=== PATIENT | male | born 2005 | race Caucasian/White ===

== ENCOUNTER 2024-07-23 12:21 | Emergency (ER) | payer BC, SELFPAY ==
--- NOTE | ~2024-07-23 | CT_ITS ---
EXAMINATION: CT brain wo con DATE: 07/23/2024 13:17 INDICATION: Syncope TECHNIQUE: Computed tomography (CT) of the head was performed without intravenous contrast. Sagittal and coronal reconstructions were performed. The mA was adjusted according to patient size. Iterative reconstruction technique was employed. The dose-length product was 605.33 mGy-cm. COMPARISON: None FINDINGS: No acute intracranial hemorrhage or acute infarction. 3.3 x 2.8 x 1.7 cm lenticular extra-axial fluid collection exerting mass effect upon the underlying right parietal lobe and with chronic remodeling of the inner table of the overlying calvarium consistent with a chronic arachnoid cyst. No other abno rmal fluid collections. Ventricles are normal and symmetric. No intracranial masses. The orbits, para nasal sinuses and mastoid air cells are normal. IMPRESSION: 1. Likely incidental chronic arachnoid cyst overlying the right parietal lobe. Otherwise normal head CT with no acute intrarenal process. Reviewed, dictated and finalized at location B.
--- NOTE | 2024-07-23 12:29 | ECG_ITS ---
Test Date: 2024-07-23 12:34:49 Measurements Intervals [place] Rate: 69 P: 68 CA: 167 QRS: 96 QRSD: 98 T: 43 QT: 392 QTc: 421 Interpretive Statements SINUS RHYTHM BORDERLINE RIGHT AXIS DEVIATION [QRS AXIS > 90] INCOMPLETE RIGHT BUNDLE BRANCH BLOCK [90+ ms QRS DURATION, TERMINAL R IN V1/V2, 40+ ms S IN I/aVL/V4/V5/V6] No previous ECG available for comparison Electronically Signed On 07-23-2024 13:04:39 CDT by Jennifer Hanson M.D.
[2024-07-23 12:31] VITALS: BP 121/70; PULSE 68; RESP 16; TEMP 36.6; O2SAT 100
[2024-07-23] MEDS: ONDANSETRON HCL ODT 4 MG TABLET PO (13:01)
--- NOTE | 2024-07-23 13:42 | ED_ITS ---
HPI - Syncope General Chief Complaint: Syncope Stated Complaint: Syncopal episode-hit back of head Time Seen by Provider: 07/23/24 12:53 Source: patient Mode of arrival: wheelchair Limitations: no limitations History of Present Illness HPI narrative: 19-year-old otherwise healthy was brought in from OB department with complaints of having a syncopal episode. Patient was watching circumcision, felt lightheaded and passed out and hit his head no complains of nausea. Denied having any chest pain or shortness of breath. Moves patient states that he did eat his breakfast this morning. Had a similar episode several months ago Related Data Allergies Allergy/AdvReac Type Severity Reaction Status Date / Time No Known Allergies Allergy Verified 07/23/24 12:22 Review of Systems Review of Systems: All systems reviewed & are unremarkable except as noted in HPI and below Constitutional: Constitutional: Reports no additional constitutional complaints Eyes: Eyes: Reports no additional eye complaints ENT: Reports system reviewed and no additional complaints, except as documented Cardiovascular: Cardiovascular: Reports no additional cardiovascular complaints Respiratory: Respiratory: Reports no additional respiratory complaints Gastrointestinal: Gastrointestinal: Reports as per HPI Musculoskeletal: Musculoskeletal: Reports no additional musculoskeletal complaints Integumentary/Breasts: Skin/Breast: Reports system reviewed and no additional complaints, except as docu Neurologic: Reports system reviewed and no additional complaints, except as documented Exam Narrative: GENERAL: Well-appearing, well-nourished, and in no acute distress. HEAD: Normocephalic, atraumatic. EYES: PERRLA and EOMI. NECK: Supple. CHEST: Clear to auscultation. No respiratory distress. HEART: Regular rate and rhythm. No murmur heard. Normal peripheral pulses. ABDOMEN: Soft, nontender, nondistended, normal active bowel sounds. EXTREMITIES: Normal range of motion. No edema. SKIN: Warm, dry, no rash. NEURO: No focal deficits. Alert and oriented x3. PSYCH: Normal mood and affect. Course Course Emergency Course: Patient feeling much better his nausea improved with the Zofran. Did inform him about his EKG and CT findings. Advised him to drink more fluids also advised to consider to sitting down when he feels lightheaded. Vital Signs Vital signs: Vital Signs Temperature 36.6 C 07/23/24 12:31 Pulse Rate 68 07/23/24 12:31 Respiratory Rate 16 07/23/24 12:31 Blood Pressure 121/70 07/23/24 12:31 Pulse Oximetry 100 07/23/24 12:31 Oxygen Delivery Room Air 07/23/24 12:31 Temperature 36.6 C 07/23/24 12:31 Pulse Rate 68 07/23/24 12:31 Respiratory Rate 16 07/23/24 12:31 Blood Pressure 121/70 07/23/24 12:31 Pulse Oximetry 100 07/23/24 12:31 Oxygen Delivery Room Air 07/23/24 12:31 MDM - Syncope Differential Diagnosis Differential diagnosis: Likely vasovagal syncope Imaging Data Radiologist's impression: ITS Impressions Head CT 07/23/24 13:23 IMPRESSION: 1. Likely incidental chronic arachnoid cyst overlying the right parietal lobe. Otherwise normal head CT with no acute intrarenal process. ECG Data EKG #1: EKG Interpretation: normal rate (69), sinus rhythm, no ectopy, no ST changes, right axis and no acute changes Discharge Plan Discharge Clinical Impression: Vasovagal syncope Patient Disposition: Home, Self-Care Condition: Stable Instructions: Syncope (ED) Patient Language: [place] Islander Follow-up/Referrals: Mayank Dan MD [Physician] - UNKNOWN,DOCTOR [Primary Care Provider] - Time of Disposition: 13:45
[2024-07-23 13:58] VITALS: BP 132/84; PULSE 78; RESP 16; O2SAT 98
--- OUTSIDE RECORDS SUMMARY | 2024-07-23 14:42 | XMS_ITS | Clinical Summary ---
Author Organization [facility] Address [address] [place] [address] Phone Care Team Providers Care Executive Business Coach Name Role Phone Dilcia Velazquez MD Primary Care Provider Allergies No known active allergies Medications acetaminophen (TYLENOL) 500 MG TabletIndications:Sp rain of interphalangeal joint of right thumb, initial encounter Take 1 Tab by mouth every 6 hours as needed for Pain or Fever. 7 Active Ibuprofen 200 MG CapsuleIndications:S prain of interphalangeal joint of right thumb, initial encounter Take 2 Caps by mouth every 6 hours as needed for Fever or Pain (Take with food and plenty of fluids; do not take if dehydrated. ). 7 Active Active Problems No known active problems Immunizations Immunization Administration Dates Next Due DTAP VACCINE 05/08/2005, 4,2003,06/10 HIB Vaccine (PRP-T) 05/08/2005,2003,2003 Hepatitis A Vaccine, Pediatric/adolescent, 2 Dose Schedule 05/31/2021 Hepatitis B Vaccine 2003,2003 Inactivated Polio Vaccine 04/06/2004,2003, 2003 Influenza Vaccine less than 3 yrs 02/26/2004 Influenza Vaccine, Quadrivalent, PF 05/31/2021 MMR Vaccine 04/06/2004 Meningococcal MCV4O 05/31/2021 Meningococcal Vaccine 02/15/2017 Pneumococcal Vaccine Peds - 7 Valent 12/2005,2003,2003,06/10 TB Skin Test 08/25/2021,08/15/2021,05/31/2021 Td Vaccine (preservative free) 04/06/2014 VFC HEP B 04/06/2014 VFC MMR 04/14/2013 VF POLIO IPV INJ 04/06/2014 VF TDAP 7+ YRS IM 04/06/2014 VFC VARICELLA 04/14/2013 Varicella Vaccine Live 04/06/2004 Family History Medical History Relation Name Comments Diabetes Maternal Grandfather Diabetes Paternal Grandmother Stroke Paternal Grandmother Relation Name Status Comments Brother Alive Father Alive Maternal Grandfather Mother Alive Paternal Grandmother Sister 1 Alive Sister 2 Alive Sister 3 Alive Social History Tobacco Use Types Packs/Day Years Used Date Smoking Tobacco: Never Smokeless Tobacco: Never Tobacco Cessation:Counseling Given: No Alcohol Use Standard Drinks/Week Comments No 0 (1 standard drink = 0.6 oz pur e alcohol) PHQ-2 Answer Date Recorded PHQ-2 Score 0 01/30/2019 Education Answer Date Recorded What is the highest level of school you have completed or the highest degree you have received? 11th grade 05/29/2021 Sex and Gender Information Value Date Recorded Sex Assigned at Not on file Legal Sex Male 3:55 AM SEGMENTAL [employer] Gender Identity Not on file Sexual Orientation Not on file Last Filed Vital Signs Vital Sign Reading Time Taken Comments Blood Pressure 120/72 05/31/2021 10:23 AM [employer]MENTAL [employer]ING [employer]PER[employer] Pulse 101 05/31/2021 10:23 AM [employer]MENT[employer]ING SUPER[employer]OR Temperature 36.6 C (97.8 F) 05/31/2021 10:23 AM SEGMENTAL [employer]ING SUPER[employer]OR Respiratory Rate 16 05/31/2021 10:23 AM SEGMENTAL [employer]ING SUPER[employer]OR Oxygen Saturation 96% 05/31/2021 10:23 AM SEGMENTAL [employer]ING SUPER[employer]OR Inhaled Oxygen Concentration - - Weight 63.7 kg (140 lb 6.4 oz) 05/31/2021 10:23 AM SEGMENTAL P[employer]ING SUPER[employer]OR Height 179.1 cm (5' 10.5 ) 05/31/2021 10:[address] Body Mass Index 19.86 05/31/2021 10:23 AM SEGMENTAL [employer]ING SUPER[employer]OR Plan of Treatment Health Maintenance Due Date Last Done Comments Hepatitis C Virus (HCV) Screening 2003 Human Papillomavirus (HPV) Immunization (1 - Male 3-dose series) 2018 Meningococcal B Immunization (1 of 2 - Standard) 2019 Influenza Immunization (#1) 2023 05/31/2021, 1 SARS-COV-2 Immunization ( season) 2023 02/22/2021, 02/01/2021 DTaP/Tdap/Td Immunization (7 - Td or Tdap) 04/06/2024 04/06/2014, 04/06/2014, 05/08/2005, Additional history exists Respiratory Syncytial Virus (RSV) Immunization (Adult) (1 - 1-dose 75+ series) 2078 Pneumococcal Immunization Combined Aged Out 05/08/2005, 2003, 2003, Additional history exists No longer eligible based on patient's age to complete this topic Measles Mumps Rubella (MMR) Immunization Discontinued 04/14/2013, 04/06/2004 Varicella Immunization Discontinued 04/14/2013, 2003 Hepatitis B Immunization Completed 014, 2003, 2003 Polio (IPV) Immunization Discontinued 014, 04/06/2004, 2003, Additional history exists Hepatitis A Immunization Discontinued 05/31/2021 Meningococcal Immunization (ACWY) Completed 05/31/2021, 02/15/2017 Rotavirus Immunization Aged Out No lo nger eligible based on patient's age to complete this topic Insurance MEDICAID [place] Care Teams Executive Business Coach Relationship Specialty Start Date End Date Dilcia Velazquez MD PCP - General Family Medicine 04/14/13
== END 2024-07-23 13:59 | disposition home or self-care (01) ==
PROVIDERS: Emergency Provider Family Medicine
DX: R55 Syncope and collapse (principal); R93.0 Abnormal findings on diagnostic imaging of skull and head, not elsewhere classified; I45.10 Unspecified right bundle-branch block
CPT/HCPCS: 70450; 93005; 99284; A9270